=== PATIENT | female | born 1940 | race Caucasian/White ===

== ENCOUNTER 2024-04-20 20:52 | Inpatient (IN) | payer MEDICARE, OTHER ==
[~2024-04-20] VITALS: Ht 165.1 cm; Wt 80.3 kg
[2024-04-20 20:20] VITALS: BP 94/54
[~2024-04-20 20:52] MED LIST: AIRSUPRA 90-810.7 GM INH; ALLOPURINOL100 MG PO; ATIVAN0.5 MG PO; BUSPAR5 MG PO; CLARITIN10 MG PO; FLECAINIDE ACE100 M1 PO; FLUTICASONE-SA1 EAC4 INH; HYGROTON25 MG PO; LATANOPROST2.5 ML OU; LEVOTHYROXINE75 MCG PO; LIPITOR20 MG PO; LOSARTAN POTAS100 M1 PO; METFORMIN HYDR500 MG PO; NORVASC10 MG PO
[2024-04-20] MEDS ORDERED: DEXTROSE 10 % IN WATER 250 ML IV PRN (21:25)
[2024-04-20] MEDS ORDERED: SODIUM CHLORIDE 0.9% 1,000 ML IV ONE ×2 (21:30→21:45)
[2024-04-20] MEDS ORDERED: MAGNESIUM OXIDE 400 MG TAB PO ONE (21:35)
[2024-04-20] MEDS ORDERED: POTASSIUM CHLORIDE 20 MEQ TAB PO ONE (21:35)
[2024-04-20] MEDS ORDERED: INSULIN LISPRO 1 UNIT/0.01 ML SQ SCH (22:00)
[2024-04-20] MEDS ORDERED: HEPARIN SODIUM 5,000 UNIT/ML VIAL SC SCH (22:00)
[2024-04-21] VITALS: BP 106/49
[2024-04-21 05:19] LABS: BUN 35 mg/dl (9-23); CHLORIDE 106 mmol/L (98-107); POTASSIUM 3.5 mmol/L (3.4-5.1)
[2024-04-21 06:07] LABS: BASO # 0.1 10*3/uL (0.0-0.1); EOS # 0.6 10*3/uL (0.0-0.4); EOS % 6.1 % (1.0-4.0); HEMATOCRIT 40.6 % (37.0-47.0); MEAN CELL VOLUME 98.5 fl (81.0-99.0); MEAN CORPUSCULAR HGB 30.6 pg (27.0-31.0); MEAN PLATELET VOLUME 10.1 fl (9.6-12.3); MONO # 0.7 10*3/uL (0.1-1.0); MONO % 7.2 % (3.0-9.0); NEUT % 64.1 % (47.0-73.0); PLATELET COUNT AUTOMATED 299 10*3/uL (130-400); RED BLOOD COUNT 4.12 10*6/uL (4.10-5.10); RED CELL DISTRI WIDTH 13.2 % (0-14.5); WHITE BLOOD COUNT 9.4 10*3/uL (4.8-10.8)
[2024-04-21 06:19] LABS: BILIRUBIN 1+ (Negative); BLOOD Negative (Negative); CLARITY Cloudy (Clear); COLOR Dark Yellow (Yellow); GLUCOSE Negative (Negative); KETONE Trace (Negative); LEUKO ESTERASE 2+ (Negative); NITRITE Negative (Negative); SPECIFIC GRAVITY 1.025 (1.001-1.030)
[2024-04-21 06:27] LABS: BACTERIA 1+; EPITHELIAL CELLS 21-30; MUCOUS 1+; WBC 21-30 wbc/hpf (0-5)
[2024-04-21] MEDS ORDERED: Doxycycline Hyclate 100 MG TAB PO SCH ×2 (07:00→10:00)
[2024-04-21 07:35] VITALS: BP 122/57
[2024-04-21] MEDS ORDERED: LORazepam 0.5 MG TAB PO PRN (08:05)
[2024-04-21] MEDS ORDERED: Levothyroxine Sodium 75 MCG TAB PO SCH (08:05)
[2024-04-21] MEDS ORDERED: Albuterol Sulf/Ipratropium 3 ML VIAL NEB PRN (08:10)
[2024-04-21] MEDS ORDERED: BUDESONIDE 0.5 MG AMP NEB SCH (08:20)
[2024-04-21] MEDS ORDERED: Albuterol Sulfate 2.5 MG/3 ML VIAL NEB SCH (08:20)
[2024-04-21] MEDS ORDERED: Fluticasone Propionate/Salmeterol 250/50 diskus INH SCH (09:00)
[2024-04-21] MEDS ORDERED: FLECAINIDE ACETATE 100 MG TAB PO SCH (10:00)
[2024-04-21] MEDS ORDERED: ATORVASTATIN CALCIUM 20 MG TAB PO SCH (10:00)
[2024-04-21] MEDS ORDERED: amLODIPine besylate 10 MG TAB PO SCH (10:00)
[2024-04-21] MEDS ORDERED: ALLOPURINOL 100 MG TAB PO SCH (10:00)
[2024-04-21] MEDS ORDERED: busPIRone Hydrochloride 5 MG TAB PO SCH (10:00)
[2024-04-21] MEDS ORDERED: DOXYCYCLINE HY100 M3 PO (12:32)
[2024-04-21] MEDS ORDERED: LATANOPROST 0.005% 2.5 ML BOTTLE OPH SCH (22:00)
== END 2024-04-21 14:51 | DRG 871 ==
LOC: ICCU 20:52
PROVIDERS: Student in an Organized Health Care Education/Training Program; ADMIT Internal Medicine; ATTEND Internal Medicine
DX: A41.9 Sepsis, unspecified organism (principal); J96.01 Acute respiratory failure with hypoxia; N17.0 Acute kidney failure with tubular necrosis; N39.0 Urinary tract infection, site not specified; F03.90 Unspecified dementia, unspecified severity, without behavioral disturbance, psychotic disturbance, mood disturbance, and anxiety; J44.9 Chronic obstructive pulmonary disease, unspecified; I48.91 Unspecified atrial fibrillation; I10 Essential (primary) hypertension; R65.20 Severe sepsis without septic shock; R94.31 Abnormal electrocardiogram [ECG] [EKG]; E86.0 Dehydration; E87.6 Hypokalemia; E11.65 Type 2 diabetes mellitus with hyperglycemia; M1A.9XX0 Chronic gout, unspecified, without tophus (tophi); F63.81 Intermittent explosive disorder; E78.5 Hyperlipidemia, unspecified; E03.9 Hypothyroidism, unspecified; Z90.710 Acquired absence of both cervix and uterus; Z90.49 Acquired absence of other specified parts of digestive tract; Z81.8 Family history of other mental and behavioral disorders; Z88.0 Allergy status to penicillin; Z88.8 Allergy status to other drugs, medicaments and biological substances

== ENCOUNTER 2024-04-21 13:55 | Inpatient (IN) | payer MEDICARE, OTHER ==
[~2024-04-21] VITALS: Ht 152.4 cm; Wt 69.4 kg
[~2024-04-21 13:55] MED LIST changes: +DOXYCYCLINE HY100 M3 PO
[2024-04-21 14:33] VITALS: BP 97/79
[2024-04-21] MEDS ORDERED: LORazepam 1 MG TAB PO PRN (14:45)
[2024-04-21] MEDS ORDERED: Ziprasidone Mesylate 20 MG VIAL IM PRN (14:45)
[2024-04-21] MEDS ORDERED: Water, Sterile 10 ML VIAL IM PRN (14:50)
[2024-04-21] MEDS ORDERED: ACETAMINOPHEN 325 MG TAB PO PRN (15:00)
[2024-04-21] MEDS ORDERED: MG-AL HYDROXIDE/SIMETICONE 30 ML UDC PO PRN (15:00)
[2024-04-21] MEDS ORDERED: Magnesium Hydroxide 30 ML UDC PO PRN (15:00)
[2024-04-21] MEDS ORDERED: Menthol/Zinc Oxide 4 GM THIN T PRN (15:05)
[2024-04-21] MEDS ORDERED: Water, Sterile 10 ML VIAL IM SCH (16:00)
[2024-04-21] MEDS ORDERED: [UNRECOGNIZED DRUG - OTHER] INH PRN (19:00)
[2024-04-21] MEDS ORDERED: Albuterol Sulfate 2.5 MG/3 ML VIAL NEB SCH (19:05)
[2024-04-21] MEDS ORDERED: BUDESONIDE 0.5 MG AMP NEB SCH (19:05)
[2024-04-21 20:30] VITALS: BP 121/66
[2024-04-21] MEDS ORDERED: Mirtazapine 15 MG TAB PO SCH (21:00)
[2024-04-21] MEDS ORDERED: risperiDONE 0.25 MG TAB PO SCH (21:00)
[2024-04-21] MEDS ORDERED: LATANOPROST 0.005% 2.5 ML BOTTLE OPH SCH (21:00)
[2024-04-21] MEDS ORDERED: FLECAINIDE ACETATE 100 MG TAB PO SCH (21:00)
[2024-04-21] MEDS ORDERED: Memantine Hydrochloride 10 MG TAB PO SCH (21:00)
[2024-04-21] MEDS ORDERED: Fluticasone Propionate/Salmeterol 250/50 diskus INH SCH (21:00)
[2024-04-21] MEDS ORDERED: Ciprofloxacin Hydrochloride 500 MG TAB PO SCH (21:35)
[2024-04-22] MEDS ORDERED: Levothyroxine Sodium 75 MCG TAB PO SCH (06:00)
[2024-04-22 06:47] LABS: BASO # 0.1 10*3/uL (0.0-0.1); BASO % 1.5 % (0.0-1.0); EOS # 0.6 10*3/uL (0.0-0.4); EOS % 7.2 % (1.0-4.0); HEMATOCRIT 43.3 % (37.0-47.0); MEAN CELL VOLUME 98.9 fl (81.0-99.0); MEAN CORPUSCULAR HGB 30.6 pg (27.0-31.0); MEAN CORPUSCULAR HGB CONC 30.9 g/dl (33.0-37.0); MEAN PLATELET VOLUME 10.2 fl (9.6-12.3); MONO # 0.6 10*3/uL (0.1-1.0); MONO % 6.6 % (3.0-9.0); NEUT # 5.2 10*3/uL (2.3-7.9); NEUT % 60.2 % (47.0-73.0); PLATELET COUNT AUTOMATED 330 10*3/uL (130-400); RED BLOOD COUNT 4.38 10*6/uL (4.10-5.10); RED CELL DISTRI WIDTH 13.2 % (0-14.5); WHITE BLOOD COUNT 8.6 10*3/uL (4.8-10.8)
[2024-04-22] MEDS ORDERED: metFORMIN Hydrochloride 500 MG TAB PO SCH (07:00)
[2024-04-22 08:00] VITALS: BP 121/71
[2024-04-22 08:03] LABS: ALKALINE PHOSPHATASE 81 U/L (46-116); BUN 27 mg/dl (9-23); CHLORIDE 105 mmol/L (98-107); CHOLESTEROL 138 mg/dL (<200); LDL CHOLESTEROL 67 mg/dL (9-159); POTASSIUM 3.6 mmol/L (3.4-5.1); SGPT/ALT 20 U/L (5-49); TOTAL PROTEIN 7.2 gm/dL (6.0-8.0); TRIGLYCERIDES 126 mg/dl (<150)
[2024-04-22 08:04] LABS: VITAMIN D, 25-HYDROXY 50.6 ng/mL (30-100)
[2024-04-22] MEDS ORDERED: RIVASTIGMINE 13.3 MG/24 HR TDM T SCH (09:00)
[2024-04-22] MEDS ORDERED: ATORVASTATIN CALCIUM 20 MG TAB PO SCH (09:00)
[2024-04-22] MEDS ORDERED: ALLOPURINOL 100 MG TAB PO SCH (09:00)
[2024-04-22] MEDS ORDERED: Albuterol Sulfate 2.5 MG/3 ML VIAL NEB PRN (13:15)
[2024-04-22 20:00] VITALS: BP 116/69
[2024-04-23] MEDS ORDERED: RISPERIDONE0.25 M2 PO (06:57)
[2024-04-23] MEDS ORDERED: MIRTAZAPINE15 M2 PO (06:57)
[2024-04-23] MEDS ORDERED: MEMANTINE HCL10 MG PO (06:57)
[2024-04-23] MEDS ORDERED: RIVASTIGMINE1 EAC2 T (06:57)
[2024-04-23 08:30] VITALS: BP 114/60
[2024-04-23] MEDS ORDERED: CIPROFLOXACIN500 M4 PO (08:46)
== END 2024-04-23 11:19 | DRG 883 ==
LOC: 3N 13:55
PROVIDERS: ADMIT Psychiatry & Neurology Psychiatry; ATTEND Psychiatry & Neurology Psychiatry
DX: F63.81 Intermittent explosive disorder (principal); N17.9 Acute kidney failure, unspecified; E11.65 Type 2 diabetes mellitus with hyperglycemia; G30.9 Alzheimer's disease, unspecified; I48.91 Unspecified atrial fibrillation; F32.9 Major depressive disorder, single episode, unspecified; F02.80 Dementia in other diseases classified elsewhere, unspecified severity, without behavioral disturbance, psychotic disturbance, mood disturbance, and anxiety; Z66 Do not resuscitate; J44.9 Chronic obstructive pulmonary disease, unspecified; E03.9 Hypothyroidism, unspecified; I10 Essential (primary) hypertension; Z90.710 Acquired absence of both cervix and uterus; Z82.61 Family history of arthritis; Z88.0 Allergy status to penicillin; Z88.8 Allergy status to other drugs, medicaments and biological substances; Z79.899 Other long term (current) drug therapy